=== PATIENT | female | born 1975 | race African-American/Black ===

== ENCOUNTER 2018-11-26 22:34 | Emergency (ER) | payer SELFPAY ==
[~2018-11-26] VITALS: Ht 172.7 cm; Wt 100.0 kg
[2018-11-26 22:38] VITALS: BP 174/129
== END 2018-11-26 22:58 | disposition left against medical advice (07) ==
LOC: ER 22:34
DX: R46.2 Strange and inexplicable behavior (principal); Z53.21 Procedure and treatment not carried out due to patient leaving prior to being seen by health care provider